=== PATIENT | female | born 1990 | race Caucasian/White ===

== ENCOUNTER 2024-10-10 14:19 | Emergency (ER) | payer MEDICARE, OTHER ==
[~2024-10-10] VITALS: Ht 172.7 cm; Wt 127.0 kg
[2024-10-10 15:00] LABS: BASOPHILS # (AUTO) 0.1 K/UL (0.0-0.2); BASOPHILS % (AUTO) 1.2 % (0.0-2.0); EOSINOPHILS # (AUTO) 0.1 K/uL (0.0-0.7); EOSINOPHILS % (AUTO) 1.1 % (0.0-7.0); HEMATOCRIT 35.8 % (31.2-41.9); HEMOGLOBIN 11.5 g/dL (10.9-14.3); LYMPHOCYTES # (AUTO) 1.1 K/uL (0.8-4.8); MEAN CORPUSCULAR HEMOGLOBIN 26.9 uug (24.7-32.8); MEAN CORPUSCULAR HGB CONC 32 g/dL (32.3-35.6); MEAN CORPUSCULAR VOLUME 83.4 fL (75.5-95.3); MONOCYTES # (AUTO) 0.5 K/uL (0.1-1.30); MONOCYTES % (AUTO) 6.1 % (0.0-11.0); NEUTROPHILS # (AUTO) 6.2 K/uL (1.8-8.9); NEUTROPHILS % (AUTO) 77.6 % (38.5-71.5); PLATELET COUNT (AUTO) 190 K/uL (179-408); RED BLOOD CELL COUNT(AUTO) 4.29 MIL/uL (3.63-4.92); RED CELL DISTRIBUTION WIDTH 16.8 % (12.3-17.7)
[2024-10-10 15:07] LABS: DIFFERENTIAL COMMENT 1
[2024-10-10 15:17] VITALS: BP 130/70; O2SAT 94
[2024-10-10 15:17] LABS: CALCIUM 8.2 mg/dL (8.5-10.1); MAGNESIUM 2.1 mg/dL (1.8-2.4); POTASSIUM 4.1 mmol/L (3.5-5.1)
== END 2024-10-10 15:19 | disposition home or self-care (01) ==
LOC: ER 14:19
DX: F29 Unspecified psychosis not due to a substance or known physiological condition (principal); Z88.0 Allergy status to penicillin
CPT/HCPCS: 36415; 83735; 85025; A4606; A4663